=== PATIENT | male | born 1985 ===

== ENCOUNTER 2020-11-22 15:43 | Emergency (ER) | payer OTHER ==
[~2020-11-22 15:43] MED LIST: CYCLOBENZAPRINE10 MG PO; IBUPROFEN600 MG PO
[2020-11-22] MEDS ORDERED: PENVEE K 500 M500 MG PO (16:09)
[2020-11-22] MEDS ORDERED: IBUPROFEN600 MG PO (16:09)
[2020-11-22] MEDS ORDERED: Viscous Lidocaine2% TOP (16:09)
== END 2020-11-22 16:15 | disposition home or self-care (01) ==
LOC: ER1 15:43
DX: K04.7 Periapical abscess without sinus (principal); F17.210 Nicotine dependence, cigarettes, uncomplicated
CPT/HCPCS: 99283

== ENCOUNTER 2021-02-02 13:29 | Emergency (ER) | payer SELFPAY ==
[~2021-02-02 13:29] MED LIST changes: +PENVEE K 500 M500 MG PO; +Viscous Lidocaine2% TOP
[2021-02-02] MEDS ORDERED: CYCLOBENZAPRINE10 MG PO (15:48)
[2021-02-02] MEDS ORDERED: MEDROL DOSEPAK 24 MG PO (15:48)
== END 2021-02-02 16:06 | disposition home or self-care (01) ==
LOC: ER1 13:29
DX: M54.31 Sciatica, right side (principal); F17.200 Nicotine dependence, unspecified, uncomplicated
CPT/HCPCS: 96372; 99283; J1100; J1885